=== PATIENT | female | born 1995 | race Caucasian/White ===

== ENCOUNTER 2016-07-24 13:17 | Emergency (ER) | payer OTHER | END 2016-07-24 22:10 | disposition home or self-care (01) | LOC: ER 13:17 | DX: F43.22 Adjustment disorder with anxiety (principal); F98.8 Other specified behavioral and emotional disorders with onset usually occurring in childhood and adolescence; F43.10 Post-traumatic stress disorder, unspecified; F31.9 Bipolar disorder, unspecified; Z79.899 Other long term (current) drug therapy; Z88.8 Allergy status to other drugs, medicaments and biological substances | CPT/HCPCS: 87400; 93005; 99283-25 ==